=== PATIENT | female | born 1990 | race Hispanic/Latino ===

== ENCOUNTER 2023-12-14 13:40 | Emergency (ER) | payer SELFPAY ==
[~2023-12-14] VITALS: Ht 162.6 cm; Wt 88.5 kg
[2023-12-14] MEDS: ONDANSETRON 4MG INJ IVP ONE (15:02)
[2023-12-14] MEDS: 0.9%NACL 1000ML 1,000 ML IV ONE (15:02)
[2023-12-14 15:13] LABS: BASOPHILS # (AUTO) 0.03 K/uL (0.00-0.20); BASOPHILS % (AUTO) 0.4 % (0.0-5.0); EOSINOPHILS # (AUTO) 0.16 K/uL (0.00-0.70); EOSINOPHILS % (AUTO) 1.9 % (0.0-8.0); HEMATOCRIT 37.5 % (36-48); IMMATURE GRANULOCYTE ABSOLUTE 0.03 K/uL (0-1); LYMPHOCYTES # (AUTO) 2.1 K/uL (1.0-4.8); LYMPHOCYTES % (AUTO) 24.8 % (21.0-51.0); MEAN CORPUSCULAR HEMOGLOBIN 30.4 pg (27.0-33.0); MEAN CORPUSCULAR HGB CONC 33.6 g/dL (32.0-36.0); MEAN CORPUSCULAR VOLUME 90.6 fL (79-99); MONOCYTES # (AUTO) 0.7 K/uL (0.1-1.0); MONOCYTES % (AUTO) 8.7 % (3.0-13.0); NEUTROPHILS # (AUTO) 5.4 K/uL (1.8-7.7); NEUTROPHILS % (AUTO) 63.8 % (40.0-77.0); PLATELET COUNT (AUTO) 231 K/uL (130-400); RED BLOOD CELL COUNT(AUTO) 4.14 MIL/uL (4.00-5.50); RED CELL DISTRIBUTION WIDTH 13.2 % (11.0-15.5); WHITE BLOOD COUNT (AUTO) 8.5 K/uL (4.8-10.8)
[2023-12-14 15:20] LABS: CREATININE 0.7 mg/dL (0.5-1.0); POTASSIUM 3.7 mmol/L (3.5-5.1)
[2023-12-14] MEDS ORDERED: ONDA-243 PO (16:38)
[2023-12-14 16:40] VITALS: BP 120/72; PULSE 90; RESP 18; O2SAT 99
== END 2023-12-14 16:45 | disposition home or self-care (01) ==
LOC: EDH 13:40
DX: O21.0 Mild hyperemesis gravidarum (principal); O26.891 Other specified pregnancy related conditions, first trimester; R10.9 Unspecified abdominal pain; R10.2 Pelvic and perineal pain; Z3A.01 Less than 8 weeks gestation of pregnancy; Z91.040 Latex allergy status; Z91.018 Allergy to other foods; Z98.890 Other specified postprocedural states
CPT/HCPCS: 99285; 96374; 76801; 96361; 80048; 84702; 85025; 86850; 86900; 86901; 36415; J7030; J2405

== ENCOUNTER 2024-04-11 08:37 | Observation (INO) | payer MEDICAID ==
[~2024-04-11] VITALS: Ht 162.6 cm; Wt 93.4 kg
[~2024-04-11 08:37] MED LIST: ONDA-243 PO
[2024-04-11 08:41] VITALS: BP 119/76; PULSE 68; RESP 18; TEMP 97.7
[2024-04-11 09:38] LABS: APPEARANCE,URINE CLEAR (CLEAR); BILIRUBIN,URINE NEGATIVE (NEGATIVE); COLOR,URINE YELLOW (YELLOW); GLUCOSE, URINE (UA) NEGATIVE (NEGATIVE); KETONES,URINE NEGATIVE (NEGATIVE); LEUKOCYTE ESTERASE ,URINE NEGATIVE Leu/uL (NEGATIVE); NITRATE,URINE NEGATIVE (NEGATIVE); OCCULT BLOOD,URINE MODERATE (NEGATIVE); PROTEIN,URINE 20 mg/dL (NEGATIVE); UROBILINOGEN,URINE 0.2 mg/dL (0.2-1.0)
[2024-04-11 09:40] LABS: AMPHET/METH SCREEN,URINE NEGATIVE (NEGATIVE); BARBITURATE SCREEN, URINE NEGATIVE (NEGATIVE); BENZODIAZEPINES SCREEN,URINE NEGATIVE (NEGATIVE); CANNABINOID SCREEN,URINE NEGATIVE (NEGATIVE); COCAINE SCREEN,URINE NEGATIVE (NEGATIVE); OPIATE SCREEN,URINE NEGATIVE (NEGATIVE); PHENCYCLIDINE SCREEN,URINE NEGATIVE (NEGATIVE)
[2024-04-11 09:48] LABS: ADD UA MICROSCOPIC YES
[2024-04-11 09:51] LABS: BACTERIA,URINE RARE /HPF (None Seen); MUCUS,URINE FEW LPF (None Seen); RBC,URINE TNTC /HPF (0-1); SQUAMOUS EPITHELIAL CELL,UR FEW /HPF (0-2)
[2024-04-11] MEDS: PROMETHAZINE HCL 25 MG/ML 1ML AMPULE IM ONE (10:34)
[2024-04-11] MEDS: LACTATED RINGERS 1000ML 1,000 ML IV SCH (10:35)
[2024-04-11] MEDS: cefTRIAXone 1G VIAL IVPB ONE (10:35)
[2024-04-11] MEDS: MEPERIDINE-PF 50 MG/ML SYG IVP ONE (10:36)
== END 2024-04-11 15:32 | disposition home or self-care (01) ==
LOC: EDH 08:37 → LDH 08:38
PROVIDERS: ADMIT Obstetrics & Gynecology; ATTEND Obstetrics & Gynecology
DX: O21.9 Vomiting of pregnancy, unspecified (principal); O26.892 Other specified pregnancy related conditions, second trimester; R10.9 Unspecified abdominal pain; Z3A.21 21 weeks gestation of pregnancy; Z79.899 Other long term (current) drug therapy
CPT/HCPCS: 96374; 96372; 96361; 96375; 80305; 81001; G0378 ×6; J7120; J2550; J0696; J2175

== ENCOUNTER → 2025-02-09 | Outpatient (CLI) | payer MEDICAID ==
[~2025-02-09] MED LIST changes: +GADOTERATE MEGLUMINE 10 MMOL/20 ML VIAL IV ONE
--- NOTE | 2025-02-10 01:33 | HMCIMG ---
EXAM: MAGNETIC RESONANCE IMAGING OF THE ABDOMEN WITH AND WITHOUT INTRAVENOUS CONTRAST Technique: Multiplanar multisequence magnetic resonance imaging of the abdomen was performed before and after intravenous administration of gadolinium-based contrast. Dynamic post-contrast arterial, portal venous, and delayed phase images were obtained. Diffusion-weighted and T2-weighted sequences were included. Study quality is adequate for interpretation. Clinical Information: Abnormal findings on prior imaging of the liver and biliary tract. Female patient, 34 years of age. No prior examinations available for comparison. Findings: The liver measures approximately 16.4 centimeters and is normal in overall size and contour. A solid enhancing nodule measuring approximately 2.8 ??? 3.8 centimeters is present in segment 8 of the right hepatic lobe. A similar solid enhancing nodule measuring approximately 1.2 ??? 1.4 centimeters is present in segment 6 of the right hepatic lobe. There is no dilatation of the intrahepatic bile ducts. The common bile duct measures approximately 1.5 millimeters in diameter. The gallbladder is distended without wall thickening, pericholecystic fluid, or intraluminal calculus. The pancreas is normal in size and signal without pancreatic ductal dilatation. Both adrenal glands are normal in morphology and signal. Both kidneys are normal in size and signal with a few tiny simple-appearing cysts in the left kidney and without hydronephrosis. The visualized bowel loops are unremarkable. The visualized osseous structures of the spine are unremarkable. The visualized lung bases are clear. No ascites or suspicious lymphadenopathy is identified. Impression: * Two indeterminate enhancing hepatic lesions in the right lobe (segment 8 approximately 3.8 centimeters and segment 6 approximately 1.4 centimeters). In a 34-year-old female, considerations include focal nodular hyperplasia and hepatocellular adenoma; hemangioma is less likely given the described solid enhancement but cannot be confirmed without full sequence characteristics. Malignancy is considered less likely in the absence of risk factors; complete characterization requires correlation with the exact enhancement pattern and hepatocyte-specific phase, which are not provided in the submitted details. * No intrahepatic or extrahepatic biliary dilatation; common bile duct caliber approximately 1.5 millimeters. * Distended gallbladder without imaging features of acute cholecystitis and without cholelithiasis detected. * Tiny simple cysts in the left kidney. * No additional acute abnormality identified in the abdomen. /D[place]gett
== END | disposition home or self-care (01) ==
LOC: RAH 08:26
PROVIDERS: ATTEND Internal Medicine Gastroenterology
DX: N28.1 Cyst of kidney, acquired (principal); R93.2 Abnormal findings on diagnostic imaging of liver and biliary tract
CPT/HCPCS: 74183; A9575